=== PATIENT | male | born 1940 | race Caucasian/White ===

== ENCOUNTER 2019-06-27 09:30 | Emergency (ER) | payer MEDICARE ==
[~2019-06-27] VITALS: Ht 182.9 cm; Wt 119.0 kg
[2019-06-27] MEDS ORDERED: ULTRAM50 MG PO (10:07)
[2019-06-27 10:47] VITALS: BP 115/81
== END 2019-06-27 10:52 | disposition home or self-care (01) ==
LOC: ED 09:30
DX: M54.5 Low back pain (principal); G89.29 Other chronic pain; I10 Essential (primary) hypertension; Z96.89 Presence of other specified functional implants